=== PATIENT | female | born 1995 | race Two or more races ===

== ENCOUNTER → 2023-04-22 | Outpatient (REF) | payer OTHER | LOC: M LAB REF 12:08 | PROVIDERS: ATTEND Nurse Practitioner Family | DX: R30.0 Dysuria (principal) ==

== ENCOUNTER → 2023-04-30 | Outpatient (REF) | payer OTHER ==
[2023-04-30 14:11] LABS: GC DNA AMPLIFICATION NEGATIVE (NEGATIVE)
== END ==
LOC: M LAB REF 11:40
PROVIDERS: ATTEND Physician Assistant
DX: R30.0 Dysuria (principal)

== ENCOUNTER → 2023-05-25 | Outpatient (CLI) | payer OTHER | LOC: M LAB 14:46 | PROVIDERS: ATTEND Advanced Practice Midwife | DX: O36.80X0 Pregnancy with inconclusive fetal viability, not applicable or unspecified (principal); Z3A.00 Weeks of gestation of pregnancy not specified ==

== ENCOUNTER 2023-05-31 09:33 | Day surgery (SDC) | payer OTHER ==
[~2023-05-31] VITALS: Ht 160 cm; Wt 80.3 kg
[~2023-05-31 09:33] MED LIST: ACETAMINOPHEN 1000MG 100ML IV BAG As Ordered ONE; KETOROLAC 60MG 2ML VIAL As Ordered ONE; LIDOCAINE 1% SDV 30ML VIAL As Ordered ONE; LIDOCAINE 2% 100MG/5ML SDV (FOR ANES.) As Ordered ONE; METHYLERGONOVINE MALEATE 0.2MG/ML 1ML VIAL As Ordered ONE; MIDAZOLAM INJ 2MG/2ML VIAL As Ordered ONE; ONDANSETRON 4MG 2ML VIAL As Ordered ONE; OXYTOCIN INJ 10UNITS/ML 1ML VIAL As Ordered ONE; fentaNYL 100 MCG/2 ML INJECTION As Ordered ONE; propofoL 200 MG/20 ML VIAL As Ordered ONE
[2023-05-31] MEDS ORDERED: LR 1,000 ML IV SCH ×2 (10:25→10:40)
[2023-05-31] MEDS ORDERED: DOXYCYCLINE HYCLATE 100 MG in D5W MINI-BAG PLUS 100 ML IV SCH (10:30)
[2023-05-31 11:35] VITALS: BP 105/60; TEMP 98.6; O2SAT 100
[2023-05-31] MEDS ORDERED: RHOGAM 300MCG (1500IU) INJ IM SCH (11:40)
[2023-05-31] MEDS ORDERED: ACETAMINOPHEN 500 MG TAB PO PRN (11:40)
[2023-05-31 12:53] LABS: HEMATOCRIT 36.3 % (36.0-47.0); MEAN CORPUSCULAR HEMOGLOBIN 29.6 pg (27.0-33.0); MEAN CORPUSCULAR HGB CONC 33.1 g/dl (32.0-36.5); MEAN CORPUSCULAR VOLUME 89.6 fl (80.0-96.0); PLATELET COUNT, AUTOMATED 256 10^3/uL (150-450); RED BLOOD COUNT 4.05 10^6/uL (4.00-5.40); WHITE BLOOD COUNT 10.3 10^3/uL (4.0-10.0)
[2023-05-31 13:10] LABS: ALBUMIN 3.4 G/DL (3.2-5.2); ALKALINE PHOSPHATASE 41 U/L (46-116); ALT/SGPT 23 U/L (7.0-40); AST/SGOT 10 U/L (<34); BILIRUBIN,TOTAL 0.4 MG/DL (0.3-1.2); BLOOD UREA NITROGEN 11 MG/DL (9-23); CALCIUM LEVEL 8.6 MG/DL (8.5-10.1); CARBON DIOXIDE LEVEL 28 MMOL/L (20-31); CHLORIDE LEVEL 106 MMOL/L (98-107); CREATININE FOR GFR 0.73 MG/DL (0.55-1.30); GLOMERULAR FILTRATION RATE > 60.0 (>60); GLUCOSE, FASTING 102 MG/DL (60-100); POTASSIUM SERUM 4.5 MMOL/L (3.5-5.1); SODIUM LEVEL 138 MMOL/L (136-145); TOTAL PROTEIN 5.9 G/DL (5.7-8.2)
== END 2023-05-31 13:48 | disposition home or self-care (01) ==
LOC: M SDC 09:33
PROVIDERS: ATTEND Obstetrics & Gynecology
DX: O02.1 Missed abortion (principal); J45.909 Unspecified asthma, uncomplicated
CPT/HCPCS: 36415; 59820; 80053; 85027; 86850; 86900; 86901; 88305; J0131; J1100; J1885; J2250; J2405; J2790; J3010

== ENCOUNTER → 2023-11-19 | Outpatient (CLI) | payer OTHER | LOC: M LAB 14:05 | PROVIDERS: ATTEND Obstetrics & Gynecology | DX: Z29.13 Encounter for prophylactic Rho(D) immune globulin (principal) ==

== ENCOUNTER → 2024-02-27 | Outpatient (CLI) | payer OTHER | LOC: M WUC 14:53 | PROVIDERS: ATTEND Nurse Practitioner Family | DX: M25.531 Pain in right wrist (principal) ==

== ENCOUNTER → 2024-10-02 | Outpatient (CLI) | payer OTHER | LOC: M RAD 15:03 | PROVIDERS: ATTEND Obstetrics & Gynecology Obstetrics | DX: O09.291 Supervision of pregnancy with other poor reproductive or obstetric history, first trimester (principal); Z3A.01 Less than 8 weeks gestation of pregnancy; O28.3 Abnormal ultrasonic finding on antenatal screening of mother ==

== ENCOUNTER → 2025-03-19 | Outpatient (REF) | payer OTHER | LOC: M LAB REF 11:49 | PROVIDERS: ATTEND Physician Assistant | DX: R30.0 Dysuria (principal) ==

== ENCOUNTER 2025-04-11 22:37 | Outpatient (CLI) | payer OTHER ==
[~2025-04-11] VITALS: Ht 160 cm; Wt 91.2 kg
[2025-04-11 22:53] VITALS: BP 131/68
[2025-04-11] MEDS ORDERED: PRENTAB9 PO (23:17)
[2025-04-11] MEDS ORDERED: PEPC1TAB5 PO ×2 (23:17)
[2025-04-11] MEDS ORDERED: HOME MED LIST COMPLETE! XX SCH (23:20)
== END 2025-04-12 00:15 | disposition home or self-care (01) ==
LOC: M LDO 22:37
PROVIDERS: ATTEND Obstetrics & Gynecology
DX: O36.8130 Decreased fetal movements, third trimester, not applicable or unspecified (principal); Z3A.33 33 weeks gestation of pregnancy
CPT/HCPCS: 59025; G0463